=== PATIENT | male | born 1980 | race Caucasian/White ===

== ENCOUNTER 2017-01-23 20:36 | Emergency (ER) | payer MEDICAID ==
[2016-08-23 12:01] VITALS: BMI 23.1
[~2017-01-23 20:36] MED LIST: ATIVAN0.5 MG PO; COLACE100 MG PO; DIFLUCAN100 MG PO; DOXYCYCLINE HY100 M2 PO; FLORAJEN3 CAPS460 MG PO; HYDROCODON-ACE1 EAC7 PO; LISINOPRIL10 MG PO; MIRALAX17 GM PO; PROTONIX40 MG PO; THERAFLU PO; TUSSIONEX PENN473 ML PO
== END 2017-01-23 22:00 | disposition left against medical advice (07) ==
LOC: D.ER 20:36
DX: R11.2 Nausea with vomiting, unspecified (principal)

== ENCOUNTER → 2017-05-31 15:37 | Outpatient (CLI) | payer MEDICAID ==
[2016-08-23 12:01] VITALS: BMI 23.1
== END | disposition home or self-care (01) ==
LOC: D.MRI 15:37
DX: M25.851 Other specified joint disorders, right hip (principal); M25.551 Pain in right hip

== ENCOUNTER → 2017-06-13 11:50 | Outpatient (CLI) | payer MEDICAID ==
[2016-08-23 12:01] VITALS: BMI 23.1
== END | disposition home or self-care (01) ==
LOC: D.OPS 11:50 → D.RAD 13:00
DX: M25.859 Other specified joint disorders, unspecified hip (principal)

== ENCOUNTER → 2017-11-25 14:43 | Outpatient (CLI) | payer MEDICAID ==
[2016-08-23 12:01] VITALS: BMI 23.1
== END | disposition home or self-care (01) ==
LOC: D.RAD 14:00 → D.OPS 14:00
DX: M25.551 Pain in right hip (principal); Z01.812 Encounter for preprocedural laboratory examination